=== PATIENT | female | born 1965 | race Caucasian/White ===

== ENCOUNTER 2017-07-01 09:52 | Emergency (ER) | payer MEDICAID ==
[2017-07-01 15:06] VITALS: BP 146/85
== END 2017-07-01 15:06 | disposition home or self-care (01) ==
LOC: ED 09:52
DX: H16.001 Unspecified corneal ulcer, right eye (principal); E11.9 Type 2 diabetes mellitus without complications; Z79.84 Long term (current) use of oral hypoglycemic drugs